=== PATIENT | female | born 2000 | race Caucasian/White ===

== ENCOUNTER 2020-07-31 20:32 | Emergency (ER) | payer OTHER ==
[~2020-07-31] VITALS: Ht 160 cm; Wt 79.4 kg
[2020-07-31 21:49] VITALS: BP 119/80
--- NOTE | 2020-07-31 22:48 | PHYS DOC ---
Past History Past Medical History: No Pertinent History, Migraines Past Surgical History: No Surgical History Alcohol Use: Rarely General Adult EDM: Chief Complaint: HEADACHE HPI: HPI: ".. I have been having 1 of my migraine headaches... I had some increased cough, sore throat, and I got a flu vaccination in his right shoulder and now it is sore and tender... My sergeant said I had to come in and get tested for COVID..." Patient is a 19 year old female who presents with above history of mild tenderness in right deltoid area at area of flu vaccination. Patient often complains of a nonproductive dry cough and a sore throat. No recent travel outside the [place] area. No specific ill contacts. No history of specific COVID contacts. 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 Patient denies any recent trauma. Patient denies any history of immunosuppression. Patient does have migraine headaches. No one on disciplinary unit or [facility] has COVID symptoms. Signs and Symptoms of COVID-19 (e.g., fever, dry cough, and/or SOB), no diagnosis made (assign the appropriate code(s)): Patient normally follows at [facility]. Review of Systems: Review of Systems: Constitutional: Complains of fever where she got her flu shot in her right deltoid Eyes: Denies change in visual acuity HENT: Denies nasal congestion. Complains of sore throat Respiratory: Complains of cough as nonproductive Cardiovascular: Denies chest pain or edema GI: Denies abdominal pain, nausea, vomiting, bloody stools or diarrhea : Denies dysuria Musculoskeletal: Denies back pain or joint pain Integument: Denies rash Neurologic: Denies headache, focal weakness or sensory changes Endocrine: Denies polyuria or polydipsia Lymphatic: Denies swollen glands Psychiatric: Denies depression or anxiety Heart Score: Risk Factors: Risk Factors: DM, Current or recent (<one month) smoker, HTN, HLP, family hist ory of CAD, obesity. Risk Scores: Score 0 - 3: 2.5% MACE over next 6 weeks - Discharge Home Score 4 - 6: 20.3% MACE over next 6 weeks - Admit for Clinical Observation Score 7 - 10: 72.7% MACE over next 6 weeks - Early Invasive Strategies Family History: Family History: Noncontributory Current Medications: Current Meds: See nursing for home meds Allergies: Allergies: Allergies Coded Allergies Type Severity Reaction Last Updated Verified No Known Drug Allergies 07/31/20 No Physical Exam: PE: Constitutional: Well developed, well nourished, no acute distress, non-toxic appearance. [] HENT: Normocephalic, atraumatic, bilateral external ears normal, oropharynx moist, no oral exudates, mild postnasal drainage nose slightly swollen turbinates with clear rhinorrhea. [] Eyes: PERRLA, EOMI, conjunctiva normal, no discharge. [] Neck: Normal range of motion, no tenderness, supple, no stridor. No adenopathy Cardiovascular:Heart rate regular rhythm, no murmur [] Lungs & Thorax: Bilateral breath sounds equal at apex with few scattered wheezes on auscultation [] Abdomen: Bowel sounds normal, soft, no tenderness, no masses, no pulsatile masses. [] Skin: Warm, dry, no erythema, no rash. [] Site of flu vaccination right deltoid area does show some mild swelling . Back: No tenderness, no CVA tenderness. [] Extremities: No tenderness, no cyanosis, no clubbing, ROM intact, no edema. [] Neurologic: Alert and oriented swollen turbinates with clear rhinorrhea 3, normal motor function, normal sensory function, no focal deficits noted. [] Psychologic: Affect normal, judgement normal, mood normal. [] Current Patient Data: Vital Signs: Vital Signs Date Time Temp Pulse Resp B/P (MAP) Pulse Ox O2 Delivery O2 Flow Rate FiO2 07/31/20 21:49 98.5 80 16 119/80 (93) 99 Room Air EKG: EKG: [] Radiology/Procedures: Radiology/Procedures: Patient declined CT [] Course & Med Decision Making: Course & Med Decision Making Pertinent Labs and Imaging studies reviewed. (See chart for details). Patient requesting immediate COVID testing. However when patient learned COVID testing results would be delayed. Patient requesting discharge. Patient encouraged to keep follow-up with [facility]. Patient return if any concerns. Patient gargle with Listerine or warm salt water. Patient take home meds as previous directed for migraine headaches. Patient to keep follow-up with [facility]. If symptomatic or any concerns self isolate x10 to 14 days. Consider retesting after self-isolation. Return if any concerns. Patient to push fluids. Patient get adequate rest. Patient take Tylenol and ibuprofen for discomfort. Patient wishes rapid COVID test to present to local sites that are for immediate testing. Impression: 1. Viral Syndrome 2. Minimal localized injection site erythema and edema-in right deltoid-phlegm flu vaccination 3. Postnasal drainage pharyngitis [] Dragon Disclaimer: Dragon Disclaimer: This electronic medical record was generated, in whole or in part, using a voice recognition dictation system. Departure Departure: Disposition: HOME/RESIDENCE PRIOR TO ADM Condition: STABLE Referrals: PCP,NO (PCP) Scripts Hydrocodone/Ibuprofen (HYDROCODONE-IBUPROFEN 7.5-200 ) 1 Each Tablet 1 TAB PO PRN Q6HRS PRN for PAIN, #30 TAB 0 Refills Prov: JOSE ANGEL DE LOS SANTOS MD 08/01/20 Justification of Admission: Justification of Admission: Justification of Admission Dx: N/A Dragon Disclaimer This chart was dictated in whole or in part using Voice Recognition software in a busy, high-work load, and often noisy Emergency Department environment. It may contain unintended and wholly unrecognized errors or omissions. Dragon Disclaimer This chart was dictated in whole or in part using Voice Recognition software in a busy, high-work load, and often noisy Emergency Department environment. It may contain unintended and wholly unrecognized errors or omissions. JOSE ANGEL DE LOS SANTOS MD Jul 31, 2020 22:48
[2020-07-31 23:47] LABS: BARBITURATES NEG (NEG); BENZODIAZEPINES NEG (NEG); CANNABINOIDS NEG (NEG); COCAINE NEG (NEG); METHADONE NEG (NEG); OPIATES NEG (NEG); PHENCYCLIDINE NEG (NEG)
[2020-07-31 23:48] LABS: AMPHETAMINE/METHAMPHETAMINE NEG (NEG)
[2020-08-01 00:17] LABS: AMORPHOUS SEDIMENT,UR PRESENT /HPF; BACTERIA,URINE FEW /HPF (0-FEW); BILIRUBIN,URINE NEG (NEG); CLARITY,URINE HAZY; COLOR,URINE YELLOW; GLUCOSE,URINE NEG (NEG); NITRITE,URINE NEG (NEG); RBC,URINE 0 /HPF (0-2); SQUAMOUS EPITHELIAL CELL,UR OCC /LPF; UROBILINOGEN,URINE 0.2 mg/dL (0.2 mg/dL); WBC,URINE 0 /HPF (0-4)
[2020-08-01] MEDS ORDERED: IBUPROFEN 600 MG TABLET. PO ONE ×2 (01:09→01:30)
[2020-08-01] MEDS ORDERED: HYDR-1179 PO (01:19)
== END 2020-08-01 01:24 | disposition home or self-care (01) ==
LOC: ER 20:32
DX: B34.9 Viral infection, unspecified (principal); J02.9 Acute pharyngitis, unspecified; L53.8 Other specified erythematous conditions; G43.909 Migraine, unspecified, not intractable, without status migrainosus
CPT/HCPCS: 36415; 80307; 81001; 81025; 87070; 87880; 99283

== ENCOUNTER 2021-05-03 21:11 | Emergency (ER) | payer OTHER ==
[~2021-05-03] VITALS: Ht 160 cm; Wt 83.6 kg
[~2021-05-03 21:11] MED LIST: HYDR-1179 PO
[2021-05-03] MEDS ORDERED: HYDROcodone/APAP 5/325MG 1 TAB TABLET PO ONE (22:30)
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
[2021-05-03] MEDS ORDERED: oxyCODONE IR 5 MG TABLET PO PRN (22:45)
[2021-05-03 23:00] VITALS: BP 141/88
== END 2021-05-03 23:05 | disposition home or self-care (01) ==
LOC: ER 21:11
DX: S06.0X9A Concussion with loss of consciousness of unspecified duration, initial encounter (principal); G43.909 Migraine, unspecified, not intractable, without status migrainosus; V49.49XA Driver injured in collision with other motor vehicles in traffic accident, initial encounter; Y93.I9 Activity, other involving external motion; Y92.89 Other specified places as the place of occurrence of the external cause; Y99.8 Other external cause status
CPT/HCPCS: 99283

== ENCOUNTER → 2021-10-21 | Outpatient (CLI) | payer OTHER ==
--- NOTE | 2021-10-22 08:52 | RAD ---
EXAM: ULTRASOUND SOFT TISSUE NECK CLINICAL HISTORY: Reason: GOITER / Spl. Instructions: / History: COMPARISON: None available. TECHNIQUE: Ultrasound examination of the thyroid gland was performed FINDINGS: The right thyroid lobe measures 5.1 x 1.5 x 0.8 cm. The left thyroid lobe measures 5.2 x 1.4 x 1.1 cm. The thyroid isthmus measures 0.3 cm. No dominant nodule seen. Homogenous thyroid echogenicity bilaterally. There is no regional cervical lymphadenopathy. IMPRESSION: 1. No dominant thyroid nodule is seen. Electronically signed by: Marin Bear MD (10/22/2021 8:50 AM) [email or web address]
== END ==
LOC: US 15:51
PROVIDERS: ATTEND Family Medicine Sports Medicine
DX: E04.9 Nontoxic goiter, unspecified (principal)
CPT/HCPCS: 76536